=== PATIENT | female | born 1995 | race Caucasian/White ===

== ENCOUNTER 2024-07-26 15:26 | Outpatient (REF) | payer OTHER, SELFPAY ==
[2024-07-26 15:50] LABS: MANUAL DIFF FLAG NO
[2024-07-26 16:34] LABS: Basophils Percent Auto 0.5 % (0-2); Hematocrit 42.3 % (37.0-47.0); Hemoglobin 15.1 g/dl (12.0-16.0); Lymphocytes Absolute Auto 1.5 X10*3/uL (1.2-4.9); Mean Corpuscular HGB Conc 35.7 g/dl (31.0-35.0); Mean Corpuscular Hemoglobin 31.9 pg (27.0-33.0); Mean Corpuscular Volume 89.4 fL (80.0-98.0); Mean Platelet Volume 9.5 fL (9.4-12.3); Monocytes Absolute Auto 0.3 X10*3/uL (0.1-1.2); Monocytes Percent Auto 6.8 % (2-11); Neutrophils Percent Auto 52.7 % (45-73); Platelet Count 262 X10*3/uL (160-400); Red Blood Count 4.73 X10*6/uL (4.20-5.50); Red Cell Distribution Width 12.6 % (11.0-16.0); White Blood Count 3.9 X10*3/uL (4.8-10.8)
[2024-07-27 03:36] LABS: CT PCR NOT DETECTED (Not Detect.); NG PCR NOT DETECTED (Not Detect.)
[2024-07-27 08:22] LABS: HIV AB/AG Nonreactive (Nonreactive); HIV Num 1 0.05 S/CO (0.00-0.99)
[2024-07-27 08:44] LABS: Syphilis Screen Nonreactive (Nonreactive)
[2024-07-29 14:19] LABS: HCV Log PCR <1.18 NOT DETECTED Log IU/mL (NOT DETECTED); HepC Viral Load <15 NOT DETECTED IU/mL (NOT DETECTED)
[2024-07-30 13:09] LABS: Testosterone, Total 349 ng/dL (2-45)
== END 2024-07-26 15:27 | disposition home or self-care (01) ==
LOC: HO.LAB 15:26
PROVIDERS: PCP Registered Nurse; Visit Provider Registered Nurse
DX: F64.9 Gender identity disorder, unspecified (principal); Z11.3 Encounter for screening for infections with a predominantly sexual mode of transmission
CPT/HCPCS: 36415; 84403; 85025; 86780; 87389; 87491; 87522; 87591

== ENCOUNTER 2024-10-18 13:35 | Outpatient (REF) | payer OTHER, SELFPAY ==
[2024-10-18 14:03] LABS: MANUAL DIFF FLAG NO
[2024-10-18 15:07] LABS: Basophils Percent Auto 0.4 % (0-2); Eosinophils Percent Auto 0.9 % (0-4); Hemoglobin 15.4 g/dl (12.0-16.0); Imm Gran Abs Auto 0.01 X10*3/uL (0.00-0.03); Imm Gran Pct Auto 0.2 % (0.0-0.4); Lymphocytes Absolute Auto 1.3 X10*3/uL (1.2-4.9); Lymphocytes Percent Auto 28.3 % (20-40); Mean Corpuscular Hemoglobin 31.6 pg (27.0-33.0); Mean Corpuscular Volume 90.2 fL (80.0-98.0); Mean Platelet Volume 9.8 fL (9.4-12.3); Monocytes Absolute Auto 0.3 X10*3/uL (0.1-1.2); Monocytes Percent Auto 6.5 % (2-11); Neutrophils Absolute Auto 2.9 x10*3/uL (2.0-8.3); Neutrophils Percent Auto 63.7 % (45-73); Platelet Count 276 X10*3/uL (160-400); Red Blood Count 4.88 X10*6/uL (4.20-5.50); Red Cell Distribution Width 12.7 % (11.0-16.0); White Blood Count 4.6 X10*3/uL (4.8-10.8)
[2024-10-19 02:39] LABS: CT PCR NOT DETECTED (Not Detect.); NG PCR NOT DETECTED (Not Detect.)
[2024-10-19 08:06] LABS: Syphilis Screen Nonreactive (Nonreactive)
[2024-10-19 08:28] LABS: HIV AB/AG Nonreactive (Nonreactive); HIV Num 1 0.07 S/CO (0.00-0.99)
[2024-10-21 15:53] LABS: HCV Log PCR <1.18 NOT DETECTED Log IU/mL (NOT DETECTED); HepC Viral Load <15 NOT DETECTED IU/mL (NOT DETECTED)
== END 2024-10-18 13:36 | disposition home or self-care (01) ==
LOC: HO.LAB 13:35
PROVIDERS: PCP Registered Nurse; Visit Provider Registered Nurse
DX: F64.9 Gender identity disorder, unspecified (principal)
CPT/HCPCS: 85025; 86780; 87389; 87491; 87522; 87591

== ENCOUNTER 2025-02-14 10:58 | Outpatient (REF) | payer OTHER, SELFPAY ==
--- OUTSIDE RECORDS SUMMARY | 2025-02-14 11:12 | XMS_ITS | Encounter Summary ---
Author Organization [facility] Address [address] [facility] [address] [place] [phone] Phone Care Team Providers Care Housing Coordinator Name Role Phone Nguyễn Patterson NP Unavailable [phone] Chloe Augustin CNP Primary Care Provider Encounter Details Date Type Department Care Team (Late st Contact Info) Description 02/12/2025 Orders Only [facility] [address] [place] [address] [phone] Chloe Augustin CNP [address] [place] [address] [phone] On pre-exposure prophylaxis for HIV (Primary Dx) Social History Tobacco Use Types Packs/Day Years Used Date Smoking Tobacco: Former Cigarettes 0.1 7 2 011 2017 Smokeless Tobacco: Never Alcohol Use Standard Drinks/Week Comments Yes 0 (1 standard drink = 0.6 oz pure alcohol) social drinking 1-2x per month, 1-3 drinks Child or Family Care Answer Date Record ed Do you have problems with on e of the following making it difficult for you to work, study, or receive health care? No 10/26/2023 Education Answer Date Recorded Are you interested in help w ith more adult education (for example, completing high school, GED, job training, learning the [place] language, technical skills, or developing parenting skills)? No 10/26/2023 Are you concerned about learning? Not on file 10/26/2023 No 10/26/2023 Yes 10/26/2023 Food Answer Date Recorded Within the past 6 months we worried whether our food would run out before we got money to buy more. Never True 10/26/2023 Within the past 6 months the food we bought just didn't last and we didn't have enough money to get more. Never True Residential Stability Answer Date Recor ded What is your housing situation today? I have jayleen mcclain 10/26/2023 How many times have you moved in the past 12 mon th? One time 10/26/2023 Paying for Meds Answer Date Recorded Do you have trouble paying for medicines? No 10/26/2023 Paying Utility Bills Answer Date Record ed Do you have trouble paying your heating or elect ricity bill? No 10/26/2023 Transportation Answer Date Recorded Has the lack of transportati on kept you from medical appointments or from getting medications? No 10/26/2023 Unemployment Answer Date Recorded Are you currently unemployed or working on a part-time or temporary basis, and looking for work? No 10/26/2023 Digital Access Answer Date Recorded No 10/26/2023 Yes 10/26/2023 Do you have reliable internet access at home? Ye s 10/26/2023 Do you have a device (e.g., phone, tablet, computer) with a working camera? Yes 10/26/2023 SNAP & WIC Answer Date Recorded Do you receive benefits from SNAP (the Supplemental Nutrition Assistance Program) or the Food Stamp Program? Yes 10/26/2023 SNAP is a free program, interested in learning m ore? Not on file 10/26/2023 Can we help you enroll in SNAP? Not on file 10/26/2023 Benefits received from WIC? Not on file 10/02 WIC is a free program, interested in learning mo re? Not on file 10/26/2023 Can we help you enroll in WIC? Not on file 0 10/26/2023 Intimate Partner Violence Answer Date R ecorded Denied Basic Needs Not on file 10/22/2024 In the past 12 months have y ou been in a relationship with a person who hurts, threatens, or tries to control you? No 10/22/2024 Worried food would run out Not on file 10/22 In the past 12 months have y ou been in a relationship with a person who hurts, threatens, or tries to control you? No 10/22/2024 Comments No Sex and Gender Information Value Date Recorded Sex Assigned at Female 08/16/2022 1:10 PM EST Legal Sex Female 10:45 AM EDT Gender Identity Transgender Male 10/22/2024 11:5 4 AM EDT Sexual Orientation Bisexual 08/16/2022 1: 10 PM EST documented as of this encounter Plan of Treatment Upcoming Encounters Date Type Department Care Team (Late st Contact Info) Description 02/17/2025 9:00 AM EDT Telemedicine [address] [phone] Chloe Augustin CNP [address] [place] [phone] [email or web address] 03/07/2025 11:00 AM EDT Office Visit [facility] [address] Chloe Augustin CNP [address] [place] [address] [phone] [email or web address] Scheduled Orders Name Type Priority Associated Diagnoses Orde r Schedule Comprehensive metabolic panel Lab Routine On pre-exposure prophylaxis for HIV Expected: 02/12/2025, Expires: 02/12/2026 documented as of this encounter Visit Diagnoses Diagnosis On pre-exposure prophylaxis for HIV- Primary documented in this encounter Additional Health Concerns Assessment Noted Time PHQ-2 Depression Total Score: 0 10/23/19 25 11:57 AM EDT documented as of this encounter Care Teams Housing Coordinator Relationship Specialty Start Date End Date Chloe Augustin CNP [address] [place] [address] [phone] PCP - General 01/01/24 Nguyễn Patterson NP [address] [place] [phone] [email or web address] 08/09/23 documented as of this encounter Additional Source Comments The information contained in this document represents components of the legal health record. It is not the complete legal health record.[facility]
[2025-02-14 12:03] LABS: Alanine Aminotransferase 29 U/L (0-31); Albumin Level 4.8 g/dL (3.5-5.0); Alkaline Phosphatase 103 U/L (39-117); Anion Gap 12 (12-20); Aspartate Amino Transferase 39 U/L (5-31); Blood Urea Nitrogen 9 mg/dL (9-16); Calcium 9.5 mg/dL (8.4-10.2); Carbon Dioxide 29 mmol/L (22-29); Chloride 101 mmol/L (96-108); Estimated Glomerular Filt Rate > 60; Potassium 4.4 mmol/L (3.3-5.1); Sodium 138 mmol/L (135-145); Total Protein 7.2 g/dL (6.5-8.0)
[2025-02-14 12:22] LABS: HIV Num 1 0.06 S/CO (0.00-0.99); Syphilis Screen Nonreactive (Nonreactive)
[2025-02-14 13:06] LABS: CT PCR Urine NOT DETECTED (Not Detect.); NG PCR Urine NOT DETECTED (Not Detect.)
[2025-02-17 15:43] LABS: HCV Log PCR <1.18 NOT DETECTED Log IU/mL (NOT DETECTED); HepC Viral Load <15 NOT DETECTED IU/mL (NOT DETECTED)
== END 2025-02-14 10:59 | disposition home or self-care (01) ==
LOC: HO.LAB 10:58
PROVIDERS: PCP Registered Nurse; Visit Provider Registered Nurse
DX: Z11.3 Encounter for screening for infections with a predominantly sexual mode of transmission (principal); Z11.4 Encounter for screening for human immunodeficiency virus [HIV]; Z11.8 Encounter for screening for other infectious and parasitic diseases; Z11.59 Encounter for screening for other viral diseases
CPT/HCPCS: 80053; 86780; 87389; 87491; 87522; 87591

== ENCOUNTER 2025-05-20 09:41 | Outpatient (REF) | payer OTHER, SELFPAY ==
[2025-05-20 10:07] LABS: MANUAL DIFF FLAG NO
[2025-05-20 10:36] LABS: Hematocrit 43.8 % (37.0-47.0); Hemoglobin 15.0 g/dl (12.0-16.0); Imm Gran Abs Auto 0.03 X10*3/uL (0.00-0.03); Imm Gran Pct Auto 0.8 % (0.0-0.4); Lymphocytes Absolute Auto 1.2 X10*3/uL (1.2-4.9); Mean Corpuscular HGB Conc 34.2 g/dl (31.0-35.0); Mean Corpuscular Hemoglobin 31.5 pg (27.0-33.0); Mean Corpuscular Volume 92.0 fL (80.0-98.0); NRBC Abs Auto 0.000 X10*3/uL (0.0-0.012); NRBC Pct Auto 0.0 /100WBC (0.0-0.2); Platelet Count 290 X10*3/uL (160-400); Red Blood Count 4.76 X10*6/uL (4.20-5.50); White Blood Count 4.0 X10*3/uL (4.8-10.8)
== END 2025-05-20 09:42 | disposition home or self-care (01) ==
LOC: HO.LAB 09:41
PROVIDERS: PCP Registered Nurse; Visit Provider Registered Nurse
DX: F64.9 Gender identity disorder, unspecified (principal)
CPT/HCPCS: 36415; 84403; 85025

== ENCOUNTER 2025-06-12 11:50 | Outpatient (REF) | payer OTHER, SELFPAY ==
[2025-06-12 13:48] LABS: CT PCR Urine NOT DETECTED (Not Detect.); NG PCR Urine NOT DETECTED (Not Detect.)
[2025-06-13 07:55] LABS: HIV Num 1 0.07 S/CO (0.00-0.99)
[2025-06-13 08:09] LABS: Syphilis Screen Nonreactive (Nonreactive)
== END 2025-06-12 11:51 ==
LOC: HO.LAB 11:50
PROVIDERS: PCP Registered Nurse; Visit Provider Registered Nurse
DX: Z11.59 Encounter for screening for other viral diseases (principal); Z11.4 Encounter for screening for human immunodeficiency virus [HIV]; Z20.2 Contact with and (suspected) exposure to infections with a predominantly sexual mode of transmission; Z79.899 Other long term (current) drug therapy
CPT/HCPCS: 86780; 87389; 87491; 87522; 87591